=== PATIENT | male | born 1995 | race Caucasian/White ===

== ENCOUNTER 2016-10-04 12:47 | Emergency (ER) | payer SELFPAY ==
[2016-10-04 12:48] VITALS: BP 128/67; PULSE 100; RESP 20; TEMP 97.5; O2SAT 98
--- NOTE | 2016-10-04 14:07 | PD ---
Physical Exam Date Seen by Provider: Oct 04, 2016 Time Seen by Provider: 14:06 Narrative 21 YOWM JEFF TRAUMA R EAR YEST VSS. AWAITING BED PLACEMENT Data Data Last Documented VS Vital Signs Date Time Temp Pulse Resp B/P Pulse Ox O2 Delivery O2 Flow Rate FiO2 10/04/16 12:48 97.5 100 20 128/67 98 Room Air [facility] Medical Record Reviewed: Yes Supervised Visit with YURI: Yes [place] Moon Oct 04, 2016 14:07
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
[2016-10-04] MEDS ORDERED: TETANUS/DIPHTHERIA TOXOID ADULT 0.5 ML VIAL IM ONE (14:45)
[2016-10-04] MEDS ORDERED: LIDOCAINE HCL 1% 50 ML VIAL INFIL ONE (14:45)
[2016-10-04] MEDS ORDERED: IBUP800T23 PO (14:53)
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
[2016-10-04] MEDS ORDERED: IBUPROFEN 800 MG TAB PO ONE (16:30)
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
== END 2016-10-04 16:32 | disposition home or self-care (01) ==
LOC: NETRI 12:47
DX: S01.319A Laceration without foreign body of unspecified ear, initial encounter (principal); S00.439A Contusion of unspecified ear, initial encounter; R51 Headache; W03.XXXA Other fall on same level due to collision with another person, initial encounter; Y93.89 Activity, other specified; Y92.480 Sidewalk as the place of occurrence of the external cause; Z23 Encounter for immunization
CPT/HCPCS: 12011; 70450; 90471; 90714

== ENCOUNTER 2017-01-28 23:42 | Inpatient (IN) | payer OTHER ==
[~2017-01-28] VITALS: Ht 193 cm; Wt 80.6 kg
[2017-01-28 23:40] VITALS: O2SAT 99
[~2017-01-28 23:42] MED LIST: IBUP800T23 PO
[2017-01-28 23:59] VITALS: O2SAT 98
[2017-01-28] MEDS ORDERED: ceFAZolin 2 GM PREMIX 50 ML ONE (23:59)
[2017-01-28] MEDS ORDERED: DIPHTH/TETANUS/ACEL PERTUSSIS (BOOSTER) 0.5 ML VIAL/PFS IM ONE (23:59)
[2017-01-29] VITALS (10 sets, daily range): BP systolic 91–120; BP diastolic 52–64; PULSE 85–147; RESP 20–36; TEMP 98.7–102; O2SAT 98–100
[2017-01-29] MEDS ORDERED: MORPHINE SULFATE 8 MG/ML INJ ONE (00:13)
[2017-01-29 00:15] LABS: AUTOMATED NEUTROPHIL # 5.9 TH/MM3 (1.8-7.7); BASOPHIL # 0.1 TH/MM3 (0-0.2); BASOPHIL % 1.3 % (0.0-2.0); EOSINOPHIL % 0.3 % (0.0-4.0); HEMATOCRIT 41.5 % (39.0-51.0); HEMO FLAGS DIFF FINAL; LYMPH % 26.6 % (9.0-44.0); LYMPHOCYTE # 2.3 TH/MM3 (1.0-4.8); MEAN CORPUSCULAR HGB CONC 34.1 % (32.0-36.0); MONO % 4.1 % (0.0-8.0); NEUT % 67.7 % (16.0-70.0); PLATELET COUNT 213 TH/MM3 (150-450); RED BLOOD COUNT 4.89 MIL/MM3 (4.50-5.90); RED CELL DISTRIBUTION WIDTH 13.4 % (11.6-17.2); WHITE BLOOD COUNT 8.8 TH/MM3 (4.0-11.0)
[2017-01-29] MEDS ORDERED: ONDANSETRON HCL 4 MG/2 ML VIAL IV PRN (00:15)
[2017-01-29] MEDS ORDERED: NALOXONE HCL 0.4 MG/ML AMP IV PRN (00:15)
[2017-01-29] MEDS ORDERED: SODIUM CHLORIDE 0.9% FLUSH 10 ML FLUSH IV FLUSH PRN ×2 (00:15→22:30)
[2017-01-29] MEDS ORDERED: Post-op Orders (for Pharmacy) MISC XX ONE ×2 (00:15→22:30)
[2017-01-29 00:16] LABS: I-STAT POTASSIUM 3.3 MMOL/L (3.5-4.9)
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
[2017-01-29] MEDS ORDERED: IOHEXOL 350 MG/ML 10 ML VIAL (for RAD DIAG) IV ONE (00:18)
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
[2017-01-29] MEDS ORDERED: ONDANSETRON HCL 4 MG/2 ML VIAL ONE (00:24)
[2017-01-29] MEDS ORDERED: SODIUM CHLORIDE 0.9% FLUSH 10 ML FLUSH IVF PRN (00:30)
[2017-01-29 00:31] LABS: APTT (PATIENT) 29.6 SEC (24.3-30.1); PROTHROMBIN TIME - PATIENT 11.2 SEC (9.8-11.6)
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
[2017-01-29] MEDS: MORPHINE SULFATE 4 MG/ML INJ IV PRN ×7 (00:51→16:29)
[2017-01-29] MEDS: PANTOPRAZOLE SODIUM 40 MG VIAL IV SCH (00:51)
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
[2017-01-29] MEDS: LACTATED RINGER'S 1000 ML INJ 1,000 ML IV SCH ×2 (02:40→08:04)
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
[2017-01-29] MEDS ORDERED: RESP: ALBUTEROL 2.5 MG/IPRATROPIUM 0.5 MG NEB (PRN) NEB (07:45)
[2017-01-29] MEDS ORDERED: BISACODYL 10 MG SUPP RECTAL PRN ×2 (07:45→22:30)
[2017-01-29] MEDS ORDERED: DOCUSATE SODIUM 100 MG CAP PO SCH (09:00)
[2017-01-29] MEDS ORDERED: SODIUM CHLORIDE 0.9% FLUSH 10 ML FLUSH IV FLUSH SCH (09:00)
[2017-01-29] MEDS: SODIUM CHLORIDE 0.9% FLUSH 10 ML FLUSH IV FLUSH SCH ×2 (09:00→21:00)
[2017-01-29] MEDS: DOCUSATE SODIUM 50 MG/SENNA 8.6 MG TAB PO SCH ×2 (09:00→21:00)
[2017-01-29] MEDS ORDERED: ACETAMINOPHEN 325 MG TAB PO PRN (10:00)
[2017-01-29] MEDS ORDERED: oxyCODONE/ACETAMINOPHEN 5 MG/325 MG TAB PO PRN ×2 (11:00→22:30)
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
[2017-01-29] MEDS ORDERED: PHENYLEPH/NS 1000 MCG/10 ML SYR IV ONE (12:00)
[2017-01-29] MEDS ORDERED: PROPOFOL 200 MG/20 ML AMP IV ONE (12:00)
[2017-01-29] MEDS ORDERED: LACTATED RINGER'S 1000 ML INJ 2,000 ML IV ONE (12:00)
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
[2017-01-29] MEDS ORDERED: LACTATED RINGER'S 1000 ML IV PRN (20:00)
[2017-01-29] MEDS ORDERED: CHLORHEXIDINE GLUCONATE 2 % 1 PACK (2 CLOTHS) TOPICAL PRN (20:00)
[2017-01-29] MEDS ORDERED: POVIDONE IODINE 5% (ANTISEPSIS KIT) 4 APPLICATIONS EACH NARE PRN (20:00)
[2017-01-29] MEDS ORDERED: ACETAMINOPHEN 1000 MG/100 ML VIAL IV ONE (20:33)
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
[2017-01-29] MEDS ORDERED: DO NOT ADM ANY ANTICOAGULANT DRUGS PRN (21:43)
[2017-01-29] MEDS ORDERED: fentaNYL CITRATE 250 MCG/5 ML AMP ONE (21:48)
[2017-01-29] MEDS ORDERED: MIDAZOLAM HCL 2 MG/2 ML VIAL ONE (21:48)
[2017-01-29] MEDS ORDERED: MORPHINE SULFATE 4 MG/ML INJ ONE (21:49)
--- NOTE | 2017-01-29 22:27 | RADRPT ---
EXAM DATE/TIME: 01/29/2017 21:12 [place] COMPARISON: CT KNEE LEFT W/O CONTRAST, January 29, 2017, 14:36. TIBIA/FIBULA LEFT (1 VW), January 28, 2017, 23:42. INDICATIONS : Evaluate left tibia fracture. MEDICAL HISTORY : None. SURGICAL HISTORY : None. ENCOUNTER: Subsequent ACUITY: 1 day PAIN SCORE: Non-responsive. LOCATION: Left tibia. FINDINGS: 6 images of the tibia and fibula were recorded digitally in the operating room using C-arm to evaluat e comminuted fracture of proximal tibia and proximal fibular fracture. CONCLUSION: Intraoperative images. Rahat Ho MD on January 29, 2017 at 22:22 Board Certified Radiologist. This report was verified electronically.
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
[2017-01-29] MEDS ORDERED: PROMETHAZINE HCL 25 MG TAB PO PRN (22:30)
[2017-01-29] MEDS ORDERED: ZOLPIDEM TARTRATE 5 MG TAB PO PRN (22:30)
[2017-01-29] MEDS ORDERED: MAGNESIUM HYDROXIDE SUSP 30 ML CUP PO PRN (22:30)
[2017-01-29] MEDS ORDERED: SENNOSIDES 8.6 MG TAB PO PRN (22:30)
[2017-01-29] MEDS ORDERED: LACTULOSE SYRUP 20 GM/30 ML CUP PO PRN (22:30)
[2017-01-29] MEDS: KETOROLAC TROMETHAMINE 30 MG/ML (IVP) VIAL IVP SCH (22:53)
[2017-01-29] MEDS: oxyCODONE/ACETAMINOPHEN 5 MG/325 MG TAB PO PRN (22:54)
[2017-01-29] MEDS: VANCOMYCIN INJ 1,000 MG in SODIUM CHLOR 0.9% 250 ML INJ 250 ML IV SCH (22:54)
[2017-01-30] VITALS (8 sets, daily range): BP systolic 105–129; BP diastolic 50–59; PULSE 67–97; RESP 18–22; TEMP 96.1–98.2; O2SAT 97–99
[2017-01-30] MEDS: PANTOPRAZOLE SODIUM 40 MG VIAL IV SCH (01:20)
[2017-01-30] MEDS: MORPHINE SULFATE 8 MG/ML INJ IV PUSH PRN ×4 (01:21→12:59)
[2017-01-30] MEDS: KETOROLAC TROMETHAMINE 30 MG/ML (IVP) VIAL IVP SCH ×2 (05:51→10:25)
[2017-01-30 08:52] LABS: AUTOMATED NEUTROPHIL # 4.5 TH/MM3 (1.8-7.7); BASOPHIL % 0.3 % (0.0-2.0); EOSINOPHIL % 0.3 % (0.0-4.0); HEMATOCRIT 26.9 % (39.0-51.0); HEMO FLAGS DIFF FINAL; LYMPH % 20.1 % (9.0-44.0); LYMPHOCYTE # 1.3 TH/MM3 (1.0-4.8); MEAN CELL VOLUME 83.7 FL (80.0-100.0); MEAN CORPUSCULAR HEMOGLOBIN 29.3 PG (27.0-34.0); MONO % 9.9 % (0.0-8.0); NEUT % 69.4 % (16.0-70.0); PLATELET COUNT 129 TH/MM3 (150-450); RED BLOOD COUNT 3.21 MIL/MM3 (4.50-5.90); RED CELL DISTRIBUTION WIDTH 13.1 % (11.6-17.2); WHITE BLOOD COUNT 6.5 TH/MM3 (4.0-11.0)
[2017-01-30] MEDS: SODIUM CHLORIDE 0.9% FLUSH 10 ML FLUSH IV FLUSH SCH ×2 (09:00→20:25)
[2017-01-30] MEDS ORDERED: DOCUSATE SODIUM 50 MG/SENNA 8.6 MG TAB PO SCH (09:00)
[2017-01-30] MEDS ORDERED: LACTULOSE SYRUP 20 GM/30 ML CUP PO SCH (09:00)
[2017-01-30 09:15] LABS: POTASSIUM 4.2 MEQ/L (3.5-5.1)
[2017-01-30] MEDS: oxyCODONE/ACETAMINOPHEN 5 MG/325 MG TAB PO PRN (09:19)
[2017-01-30] MEDS: VANCOMYCIN INJ 1,000 MG in SODIUM CHLOR 0.9% 250 ML INJ 250 ML IV SCH (10:26)
[2017-01-30] MEDS: METHOCARBAMOL 500 MG TAB PO SCH ×2 (12:21→20:24)
[2017-01-30] MEDS: BACITRACIN TOP OINT 15 GM TUBE TOPICAL SCH ×2 (12:57→20:25)
[2017-01-30] MEDS: LIDOCAINE HCL 5% PATCH T-DERMAL SCH (12:59)
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
[2017-01-30] MEDS ORDERED: HYDROmorphone HCL PF 1 MG/ML VIAL IV PUSH PRN ×2 (13:15)
[2017-01-30] MEDS ORDERED: WALKER WHEELS/F1 MIS (15:54)
[2017-01-30] MEDS: HYDROmorphone HCL PF 1 MG/ML VIAL IV PUSH PRN ×2 (17:21→20:25)
[2017-01-30 18:50] LABS: HEMATOCRIT 25.1 % (39.0-51.0); REVIEW FLAG FINAL
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
[2017-01-30] MEDS: DOCUSATE SODIUM 50 MG/SENNA 8.6 MG TAB PO SCH (20:24)
[2017-01-31] VITALS: BP 110/53; PULSE 88; RESP 20; TEMP 98; O2SAT 98
[2017-01-31] MEDS: HYDROmorphone HCL PF 1 MG/ML VIAL IV PUSH PRN ×2 (01:00→04:03)
[2017-01-31] MEDS: METHOCARBAMOL 500 MG TAB PO SCH ×3 (04:03→20:12)
[2017-01-31] MEDS: oxyCODONE/ACETAMINOPHEN 5 MG/325 MG TAB PO PRN ×4 (06:31→18:52)
[2017-01-31] MEDS ORDERED: oxyCODONE/ACETAMINOPHEN 5 MG/325 MG TAB PO PRN (07:00)
[2017-01-31] MEDS: MORPHINE SULFATE 8 MG/ML INJ IV PUSH PRN ×4 (07:45→20:15)
[2017-01-31 08:00] VITALS: BP 91/48; PULSE 82; RESP 16; TEMP 98.9; O2SAT 97
[2017-01-31] MEDS: DOCUSATE SODIUM 50 MG/SENNA 8.6 MG TAB PO SCH ×2 (08:53→20:12)
[2017-01-31] MEDS: LIDOCAINE HCL 5% PATCH T-DERMAL SCH (08:53)
[2017-01-31] MEDS: BACITRACIN TOP OINT 15 GM TUBE TOPICAL SCH ×2 (08:54→20:13)
[2017-01-31 10:40] LABS: REVIEW FLAG FINAL
[2017-01-31 12:00] VITALS: BP 102/51; PULSE 62; RESP 17; TEMP 96.6; O2SAT 98
[2017-01-31] MEDS: GABAPENTIN 300 MG CAP PO SCH ×2 (12:06→18:52)
[2017-01-31] MEDS: SODIUM CHLORIDE 0.9% FLUSH 10 ML FLUSH IV FLUSH SCH ×2 (12:07→20:09)
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
[2017-01-31] MEDS ORDERED: LACTULOSE SYRUP 20 GM/30 ML CUP PO ONE (12:30)
[2017-01-31 16:00] VITALS: BP 105/53; PULSE 77; RESP 19; TEMP 97.8; O2SAT 97
[2017-01-31 20:00] VITALS: BP 100/52; PULSE 67; RESP 18; TEMP 96.6; O2SAT 100
[2017-01-31] MEDS: ENOXAPARIN SODIUM 30 MG/0.3 ML SYRINGE SQ SCH (20:11)
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
[2017-02-01] VITALS: BP 106/54; PULSE 95; RESP 18; TEMP 97.2; O2SAT 98
[2017-02-01] MEDS: oxyCODONE/ACETAMINOPHEN 5 MG/325 MG TAB PO PRN ×6 (00:11→22:23)
[2017-02-01] MEDS: MORPHINE SULFATE 8 MG/ML INJ IV PUSH PRN ×5 (01:19→23:38)
[2017-02-01 04:00] VITALS: BP 107/54; PULSE 83; RESP 18; TEMP 97.3; O2SAT 97
[2017-02-01] MEDS: METHOCARBAMOL 500 MG TAB PO SCH ×3 (05:12→22:23)
[2017-02-01 05:58] LABS: BASOPHIL % 0.8 % (0.0-2.0); EOSINOPHIL # 0.3 TH/MM3 (0-0.4); EOSINOPHIL % 4.7 % (0.0-4.0); HEMO FLAGS DIFF FINAL; LYMPH % 30.6 % (9.0-44.0); LYMPHOCYTE # 1.7 TH/MM3 (1.0-4.8); MEAN CELL VOLUME 85.2 FL (80.0-100.0); MEAN CORPUSCULAR HEMOGLOBIN 28.4 PG (27.0-34.0); MEAN CORPUSCULAR HGB CONC 33.4 % (32.0-36.0); MONO % 9.8 % (0.0-8.0); NEUT % 54.1 % (16.0-70.0); PLATELET COUNT 209 TH/MM3 (150-450); RED CELL DISTRIBUTION WIDTH 13.4 % (11.6-17.2); WHITE BLOOD COUNT 5.5 TH/MM3 (4.0-11.0)
[2017-02-01 05:59] LABS: POTASSIUM 3.8 MEQ/L (3.5-5.1)
--- NOTE | 2017-02-01 06:52 | RADRPT ---
EXAM DATE/TIME: 02/01/2017 06:08 [place] COMPARISON: CHEST SINGLE AP, January 28, 2017, 23:42. INDICATIONS : Pain left chest and left upper abdomen, coughing MEDICAL HISTORY : splenic laceration, tib/fib fracture, contusion SURGICAL HISTORY : None. ENCOUNTER: Subsequent ACUITY: 3 days PAIN SCORE: 8/10 LOCATION: Left chest FINDINGS: A single view of the chest demonstrates the lungs to be symmetrically aerated without evidence of mas s, infiltrate or effusion. The cardiomediastinal contours are unremarkable. Osseous structures are intact. CONCLUSION: Normal examination. Raven Haskins MD on February 01, 2017 at 6:50 Board Certified Radiologist. This report was verified electronically.
[2017-02-01] MEDS: SODIUM CHLORIDE 0.9% FLUSH 10 ML FLUSH IV FLUSH SCH ×2 (07:42→19:48)
[2017-02-01] MEDS: GABAPENTIN 300 MG CAP PO SCH ×3 (07:42→17:22)
[2017-02-01] MEDS: DOCUSATE SODIUM 50 MG/SENNA 8.6 MG TAB PO SCH ×2 (07:43→19:48)
[2017-02-01] MEDS: LIDOCAINE HCL 5% PATCH T-DERMAL SCH (07:43)
[2017-02-01] MEDS: BACITRACIN TOP OINT 15 GM TUBE TOPICAL SCH ×2 (07:44→19:52)
[2017-02-01] MEDS: ENOXAPARIN SODIUM 30 MG/0.3 ML SYRINGE SQ SCH ×2 (07:45→22:23)
[2017-02-01 08:00] VITALS: BP 110/55; PULSE 90; RESP 18; TEMP 97; O2SAT 98
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
[2017-02-01 12:00] VITALS: BP 122/57; PULSE 87; RESP 15; TEMP 96.6; O2SAT 99
[2017-02-01 16:00] VITALS: BP 113/53; PULSE 83; RESP 17; TEMP 97.2; O2SAT 98
[2017-02-01 20:00] VITALS: BP 136/64; PULSE 99; RESP 20; TEMP 97.4; O2SAT 98
[2017-02-02] VITALS: BP 111/56; PULSE 89; RESP 18; TEMP 98.6; O2SAT 98
[2017-02-02] MEDS: oxyCODONE/ACETAMINOPHEN 5 MG/325 MG TAB PO PRN ×5 (03:14→23:52)
[2017-02-02] MEDS: MORPHINE SULFATE 8 MG/ML INJ IV PUSH PRN ×5 (05:20→22:31)
[2017-02-02] MEDS: METHOCARBAMOL 500 MG TAB PO SCH ×4 (05:21→22:21)
[2017-02-02 08:00] VITALS: BP 103/49; PULSE 73; RESP 16; TEMP 97.9; O2SAT 97
[2017-02-02] MEDS ORDERED: GENTAMICIN SULFATE 80 MG/2 ML VIAL ONE (08:39)
[2017-02-02] MEDS: SODIUM CHLORIDE 0.9% FLUSH 10 ML FLUSH IV FLUSH SCH ×2 (08:54→19:50)
[2017-02-02] MEDS: GABAPENTIN 300 MG CAP PO SCH ×4 (08:59→18:09)
[2017-02-02] MEDS: BACITRACIN TOP OINT 15 GM TUBE TOPICAL SCH ×2 (08:59→19:50)
[2017-02-02] MEDS: DOCUSATE SODIUM 50 MG/SENNA 8.6 MG TAB PO SCH ×2 (08:59→19:49)
[2017-02-02] MEDS: LIDOCAINE HCL 5% PATCH T-DERMAL SCH (08:59)
[2017-02-02] MEDS: ENOXAPARIN SODIUM 30 MG/0.3 ML SYRINGE SQ SCH (09:00)
[2017-02-02] MEDS ORDERED: FAMOTIDINE 20 MG/2 ML VIAL ONE ×2 (11:43→11:51)
[2017-02-02] MEDS ORDERED: HYDROmorphone HCL PF 2 MG/ML VIAL ONE (11:43)
[2017-02-02] MEDS ORDERED: VANCOMYCIN HCL 1000 MG VIAL ONE (11:50)
[2017-02-02] MEDS ORDERED: ceFAZolin INJ 1,000 MG VIAL ONE (11:50)
[2017-02-02] MEDS ORDERED: MIDAZOLAM HCL 2 MG/2 ML VIAL ONE ×2 (11:51→15:11)
[2017-02-02] MEDS ORDERED: PROPOFOL 200 MG/20 ML AMP IV ONE (12:00)
[2017-02-02] MEDS ORDERED: ONDANSETRON HCL 4 MG/2 ML VIAL IV PUSH ONE (12:00)
[2017-02-02] MEDS ORDERED: KETOROLAC TROMETHAMINE 60 MG/2 ML (IM) VIAL IM ONE (12:00)
--- NOTE | 2017-02-02 13:23 | PD.OP ---
cc: Dandy Rolle Jr., MD Operative Report Date of Surgery: Feb 02, 2017 Preoperative Diagnosis: Left leg compartment syndrome with proximal tibia fracture Postoperative Diagnosis: Same Procedure: Left leg wound closure Anesthesia: Gen. Surgeon: Dandy Rolle Resident Manager(s): Staff Resident Surgeon: None Operation and Findings: Timeout was performed. Patient left leg was prepped and draped in usual sterile manner. Wound VAC was removed. The medial and lateral fasciotomy wounds were thoroughly irrigated. All 4 compartments were soft without any evidence of soft tissue or muscular necrosis. The wounds were closed with 2-0 Vicryl, and 2-0 nylon at the skin. Compartments remain soft after wound closure and the wound would not under any significant tension. The Long leg splint was replaced. Patient was extubated and transferred to recovery room in stable condition. There were no complications. Dandy Rolle Jr., MD Feb 02, 2017 13:23
[2017-02-02] MEDS ORDERED: oxyCODONE/ACETAMINOPHEN 5 MG/325 MG TAB PO PRN ×2 (13:30)
[2017-02-02] MEDS ORDERED: SENNOSIDES 8.6 MG TAB PO PRN (13:30)
[2017-02-02] MEDS ORDERED: BISACODYL 10 MG SUPP RECTAL PRN (13:30)
[2017-02-02] MEDS ORDERED: PROMETHAZINE HCL 25 MG TAB PO PRN (13:30)
[2017-02-02] MEDS ORDERED: Post-op Orders (for Pharmacy) MISC XX ONE (13:30)
[2017-02-02] MEDS ORDERED: SODIUM CHLORIDE 0.9% FLUSH 10 ML FLUSH IV FLUSH PRN (13:30)
[2017-02-02] MEDS ORDERED: LACTULOSE SYRUP 20 GM/30 ML CUP PO PRN (13:30)
[2017-02-02] MEDS ORDERED: MAGNESIUM HYDROXIDE SUSP 30 ML CUP PO PRN (13:30)
[2017-02-02] MEDS ORDERED: DO NOT ADM ANY ANTICOAGULANT DRUGS PRN (13:48)
[2017-02-02] MEDS ORDERED: *morphine SULFATE 8 MG/ML PERIprocedure ONLY ONE (14:09)
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
[2017-02-02] MEDS ORDERED: fentaNYL CITRATE 250 MCG/5 ML AMP ONE (15:11)
[2017-02-02 16:00] VITALS: BP 107/55; PULSE 92; RESP 16; TEMP 96.3; O2SAT 97
[2017-02-02] MEDS: KETOROLAC TROMETHAMINE 30 MG/ML (IVP) VIAL IVP SCH (19:49)
[2017-02-02 20:00] VITALS: BP 116/57; PULSE 86; RESP 18; TEMP 95.4; O2SAT 98
[2017-02-02] MEDS ORDERED: ZOLPIDEM TARTRATE 5 MG TAB PO PRN (21:00)
[2017-02-02] MEDS ORDERED: DOCUSATE SODIUM 50 MG/SENNA 8.6 MG TAB PO SCH (21:00)
[2017-02-02] MEDS: VANCOMYCIN INJ 1,000 MG in SODIUM CHLOR 0.9% 250 ML INJ 250 ML IV SCH (22:21)
[2017-02-03] VITALS: BP 115/54; PULSE 66; RESP 18; TEMP 96.5; O2SAT 97
[2017-02-03] MEDS: ENOXAPARIN SODIUM 30 MG/0.3 ML SYRINGE SQ SCH ×2 (02:30→14:00)
[2017-02-03] MEDS: KETOROLAC TROMETHAMINE 30 MG/ML (IVP) VIAL IVP SCH ×4 (02:30→22:34)
[2017-02-03] MEDS: MORPHINE SULFATE 8 MG/ML INJ IV PUSH PRN ×4 (02:30→22:35)
[2017-02-03] MEDS: oxyCODONE/ACETAMINOPHEN 5 MG/325 MG TAB PO PRN ×3 (03:46→20:14)
[2017-02-03] MEDS: METHOCARBAMOL 500 MG TAB PO SCH ×3 (05:39→20:13)
[2017-02-03] MEDS: GABAPENTIN 300 MG CAP PO SCH ×3 (08:01→18:00)
[2017-02-03] MEDS: LIDOCAINE HCL 5% PATCH T-DERMAL SCH (08:01)
[2017-02-03] MEDS: BACITRACIN TOP OINT 15 GM TUBE TOPICAL SCH ×2 (08:01→20:19)
[2017-02-03] MEDS: DOCUSATE SODIUM 50 MG/SENNA 8.6 MG TAB PO SCH ×2 (08:03→20:19)
[2017-02-03] MEDS: SODIUM CHLORIDE 0.9% FLUSH 10 ML FLUSH IV FLUSH SCH ×2 (08:03→20:18)
[2017-02-03 08:15] VITALS: BP 106/55; PULSE 73; RESP 18; TEMP 97; O2SAT 98
[2017-02-03] MEDS ORDERED: GENTAMICIN SULFATE 80 MG/2 ML VIAL ONE (08:30)
[2017-02-03] MEDS: VANCOMYCIN INJ 1,000 MG in SODIUM CHLOR 0.9% 250 ML INJ 250 ML IV SCH ×2 (11:38→22:33)
[2017-02-03] MEDS ORDERED: WHEEMIS3 (11:42)
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
[2017-02-03] MEDS ORDERED: PROPOFOL 200 MG/20 ML AMP IV ONE (11:56)
[2017-02-03] MEDS ORDERED: KETOROLAC TROMETHAMINE 60 MG/2 ML (IM) VIAL IM ONE (11:57)
[2017-02-03] MEDS ORDERED: ONDANSETRON HCL 4 MG/2 ML VIAL IV PUSH ONE (11:57)
[2017-02-03] MEDS ORDERED: LACTATED RINGER'S 1000 ML INJ 1,000 ML IV ONE (11:57)
[2017-02-03] MEDS ORDERED: MIDAZOLAM HCL 2 MG/2 ML VIAL ONE (12:29)
[2017-02-03] MEDS ORDERED: ACETAMINOPHEN 1000 MG/100 ML VIAL IV ONE (12:29)
[2017-02-03] MEDS ORDERED: ONDANSETRON HCL 4 MG/2 ML VIAL ONE (12:30)
[2017-02-03] MEDS ORDERED: FAMOTIDINE 20 MG/2 ML VIAL ONE (12:30)
[2017-02-03] MEDS ORDERED: fentaNYL CITRATE 250 MCG/5 ML AMP ONE (12:30)
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
[2017-02-03] MEDS ORDERED: PERC5TAB12 PO (15:57)
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
[2017-02-03] MEDS ORDERED: MORPHINE SULFATE 8 MG/ML INJ IV PUSH PRN (16:15)
[2017-02-03] MEDS ORDERED: ZOLPIDEM TARTRATE 5 MG TAB PO PRN (16:15)
[2017-02-03] MEDS ORDERED: SODIUM CHLORIDE 0.9% FLUSH 10 ML FLUSH IV FLUSH PRN (16:15)
[2017-02-03] MEDS ORDERED: LACTULOSE SYRUP 20 GM/30 ML CUP PO PRN (16:15)
[2017-02-03] MEDS ORDERED: oxyCODONE/ACETAMINOPHEN 5 MG/325 MG TAB PO PRN (16:15)
[2017-02-03] MEDS ORDERED: BISACODYL 10 MG SUPP RECTAL PRN (16:15)
[2017-02-03] MEDS ORDERED: MAGNESIUM HYDROXIDE SUSP 30 ML CUP PO PRN (16:15)
[2017-02-03] MEDS ORDERED: SENNOSIDES 8.6 MG TAB PO PRN (16:15)
[2017-02-03] MEDS ORDERED: Post-op Orders (for Pharmacy) MISC XX ONE (16:15)
[2017-02-03] MEDS ORDERED: PROMETHAZINE HCL 25 MG TAB PO PRN (16:15)
[2017-02-03] MEDS ORDERED: DO NOT ADM ANY ANTICOAGULANT DRUGS PRN (16:45)
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
[2017-02-03] MEDS ORDERED: *MEPERIDINE 25 MG INJ VIAL PERIprocedural Use ONLY ONE (17:13)
[2017-02-03] MEDS ORDERED: *morphine SULFATE 8 MG/ML PERIprocedure ONLY ONE ×3 (17:18→17:31)
[2017-02-03] MEDS ORDERED: *HYDROmorphone PF 1 MG VIAL PERIprocedural Use ONLY ONE (17:37)
[2017-02-03] MEDS ORDERED: ceFAZolin INJ 1,000 MG VIAL ONE (18:00)
[2017-02-03] MEDS: LACTATED RINGER'S 1000 ML INJ 1,000 ML IV SCH (18:00)
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
[2017-02-03 20:00] VITALS: BP 118/58; PULSE 78; RESP 16; TEMP 95.5; O2SAT 96
[2017-02-04] VITALS: BP 113/55; PULSE 102; RESP 16; TEMP 98.5; O2SAT 97
[2017-02-04] MEDS: MORPHINE SULFATE 8 MG/ML INJ IV PUSH PRN ×3 (03:04→08:57)
[2017-02-04 04:00] VITALS: BP 136/65; PULSE 96; RESP 16; TEMP 99.2; O2SAT 96
[2017-02-04] MEDS: KETOROLAC TROMETHAMINE 30 MG/ML (IVP) VIAL IVP SCH ×4 (04:07→21:38)
[2017-02-04] MEDS: oxyCODONE/ACETAMINOPHEN 5 MG/325 MG TAB PO PRN ×2 (04:07→08:13)
[2017-02-04] MEDS: LACTATED RINGER'S 1000 ML INJ 1,000 ML IV SCH ×2 (05:30→21:34)
[2017-02-04] MEDS: METHOCARBAMOL 500 MG TAB PO SCH ×3 (06:04→21:38)
[2017-02-04] MEDS: ENOXAPARIN SODIUM 30 MG/0.3 ML SYRINGE SQ SCH ×2 (06:06→17:06)
[2017-02-04 08:00] VITALS: BP 119/64; PULSE 99; RESP 18; TEMP 99.4; O2SAT 97
[2017-02-04] MEDS: GABAPENTIN 300 MG CAP PO SCH ×2 (08:12→12:01)
[2017-02-04] MEDS: DOCUSATE SODIUM 50 MG/SENNA 8.6 MG TAB PO SCH ×2 (08:12→21:38)
[2017-02-04] MEDS: LIDOCAINE HCL 5% PATCH T-DERMAL SCH (08:13)
[2017-02-04] MEDS: BACITRACIN TOP OINT 15 GM TUBE TOPICAL SCH ×2 (08:59→21:00)
[2017-02-04] MEDS: SODIUM CHLORIDE 0.9% FLUSH 10 ML FLUSH IV FLUSH SCH ×2 (08:59→21:00)
[2017-02-04] MEDS ORDERED: NALOXONE HCL 0.4 MG/ML AMP IV PRN (11:15)
[2017-02-04] MEDS ORDERED: HYDROmorphone HCL PCA 6 MG/30 ML IV SCH (11:15)
[2017-02-04 12:00] VITALS: BP 118/56; PULSE 105; RESP 19; TEMP 100; O2SAT 96
[2017-02-04] MEDS: VANCOMYCIN INJ 1,000 MG in SODIUM CHLOR 0.9% 250 ML INJ 250 ML IV SCH (12:01)
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
[2017-02-04] MEDS: GABAPENTIN 400 MG CAP PO SCH ×2 (13:00→17:06)
[2017-02-04] MEDS: PCA - TOTAL MG DILAUDID DELIVERED PER SHIFT OTHER SCH ×2 (14:00→21:38)
[2017-02-04 16:00] VITALS: BP 120/62; PULSE 95; RESP 19; TEMP 99.5; O2SAT 99
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
[2017-02-04 20:00] VITALS: BP_SYST 57; PULSE 103; RESP 18; TEMP 99; O2SAT 98
[2017-02-04] MEDS: HYDROmorphone HCL PCA 6 MG/30 ML IV SCH (21:36)
[2017-02-05] VITALS: BP 114/56; PULSE 116; RESP 18; TEMP 101.7; O2SAT 97
[2017-02-05 05:08] LABS: AUTOMATED NEUTROPHIL # 6.4 TH/MM3 (1.8-7.7); BASOPHIL # 0.1 TH/MM3 (0-0.2); BASOPHIL % 0.6 % (0.0-2.0); EOSINOPHIL # 0.1 TH/MM3 (0-0.4); EOSINOPHIL % 1.2 % (0.0-4.0); HEMATOCRIT 28.6 % (39.0-51.0); HEMO FLAGS DIFF FINAL; LYMPH % 20.2 % (9.0-44.0); LYMPHOCYTE # 1.9 TH/MM3 (1.0-4.8); MEAN CELL VOLUME 84.9 FL (80.0-100.0); MEAN CORPUSCULAR HEMOGLOBIN 28.1 PG (27.0-34.0); MEAN CORPUSCULAR HGB CONC 33.1 % (32.0-36.0); MONO % 9.2 % (0.0-8.0); NEUT % 68.8 % (16.0-70.0); PLATELET COUNT 442 TH/MM3 (150-450); RED BLOOD COUNT 3.37 MIL/MM3 (4.50-5.90); RED CELL DISTRIBUTION WIDTH 13.8 % (11.6-17.2); WHITE BLOOD COUNT 9.3 TH/MM3 (4.0-11.0)
[2017-02-05 05:40] LABS: BICARBONATE 28.5 MEQ/L (21.0-32.0); POTASSIUM 4.2 MEQ/L (3.5-5.1)
[2017-02-05] MEDS: METHOCARBAMOL 500 MG TAB PO SCH ×3 (05:42→22:35)
[2017-02-05] MEDS: ENOXAPARIN SODIUM 30 MG/0.3 ML SYRINGE SQ SCH ×2 (05:43→18:44)
[2017-02-05] MEDS: KETOROLAC TROMETHAMINE 30 MG/ML (IVP) VIAL IVP SCH ×2 (05:43→10:21)
[2017-02-05] MEDS: PCA - TOTAL MG DILAUDID DELIVERED PER SHIFT OTHER SCH ×3 (05:52→22:00)
[2017-02-05 08:00] VITALS: BP 122/58; PULSE 97; RESP 18; TEMP 99.1; O2SAT 96
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
[2017-02-05] MEDS: LIDOCAINE HCL 5% PATCH T-DERMAL SCH (10:20)
[2017-02-05] MEDS: SODIUM CHLORIDE 0.9% FLUSH 10 ML FLUSH IV FLUSH SCH ×2 (10:21→21:00)
[2017-02-05] MEDS: DOCUSATE SODIUM 50 MG/SENNA 8.6 MG TAB PO SCH ×2 (10:21→22:36)
[2017-02-05] MEDS: GABAPENTIN 400 MG CAP PO SCH ×3 (10:21→18:44)
[2017-02-05] MEDS: BACITRACIN TOP OINT 15 GM TUBE TOPICAL SCH ×2 (10:25→21:00)
[2017-02-05] MEDS: HYDROmorphone HCL PCA 6 MG/30 ML IV SCH ×2 (10:28→19:16)
--- NOTE | 2017-02-05 11:36 | HHI.PR ---
Subjective Subjective Notes Incisional pain better controlled today Objective Vitals/I&O Vital Signs Date Time Temp Pulse Resp B/P Pulse Ox O2 Delivery O2 Flow Rate FiO2 02/05/17 10:28 16 02/05/17 08:00 99.1 97 122/58 96 02/03/17 18:45 Room Air 02/02/17 16:33 2 Labs Laboratory Tests Test 02/05/17 04:31 White Blood Count 9.3 Red Blood Count 3.37 Hemoglobin 9.5 Hematocrit 28.6 Mean Corpuscular Volume 84.9 Mean Corpuscular Hemoglobin 28.1 Mean Corpuscular Hemoglobin 33.1 Concent Red Cell Distribution Width 13.8 Platelet Count 442 Mean Platelet Volume 6.1 Neutrophils (%) (Auto) 68.8 Lymphocytes (%) (Auto) 20.2 Monocytes (%) (Auto) 9.2 Eosinophils (%) (Auto) 1.2 Basophils (%) (Auto) 0.6 Neutrophils # (Auto) 6.4 Lymphocytes # (Auto) 1.9 Monocytes # (Auto) 0.9 Eosinophils # (Auto) 0.1 Basophils # (Auto) 0.1 CBC Comment DIFF FINAL Differential Comment Sodium Level 135 Potassium Level 4.2 Chloride Level 97 Carbon Dioxide Level 28.5 Anion Gap 10 Blood Urea Nitrogen 7 Creatinine 0.58 Estimat Glomerular Filtration 177 Rate Random Glucose 109 Calcium Level 8.6 Radiology Last Impressions Tibia/Fibula X-Ray 01/29/17 0000 Signed Impressions: Service Date/Time: Sunday, January 29, 2017 21:12 - CONCLUSION: Intraoperative images. Rahat Ho MD Lower Extremity CT 01/29/17 0000 Signed Impressions: Service Date/Time: Sunday, January 29, 2017 14:36 - CONCLUSION: 1. Acute comminuted minimally displaced fracture involving the tibial plateau and proximal tibia. 2. Acute nondisplaced fracture involving the proximal fibula. 3. Large suprapatellar knee joint effusion with fat-fluid level. Imtiaz Moore MD Thoracic Spine CT 01/28/17 828 Signed Impressions: Service Date/Time: Sunday, January 29, 2017 00:17 - CONCLUSION: Normal examination of the thoracic spine. Elongated 11 cm wedge-shaped infiltrate left lower and upper lobe posteriorly consistent with pulmonary contusion. Phillip Rangel MD Pelvis X-Ray 01/28/172351 Signed Impressions: Service Date/Time: Saturday, January 28, 2017 23:42 - CONCLUSION: Unremarkable examination of the pelvis. Phillip Rangel MD Maxillofacial CT 01/28/172351 Signed Impressions: Service Date/Time: Sunday, January 29, 2017 00:10 - CONCLUSION: Normal examination. Phillip Rangel MD Lumbar Spine CT 01/28/172351 Signed Impressions: Service Date/Time: Sunday, January 29, 2017 00:17 - CONCLUSION: Normal examination. Phillip Rangel MD Head CT 01/28/172351 Signed Impressions: Service Date/Time: Sunday, January 29, 2017 00:10 - CONCLUSION: Normal examination. Phillip Rangel MD Chest X-Ray 01/28/172351 Signed Impressions: Service Date/Time: Saturday, January 28, 2017 23:42 - CONCLUSION: Normal examination. Phillip Rangel MD Chest CT 01/28/172351 Signed Impressions: Service Date/Time: Sunday, January 29, 2017 00:17 - CONCLUSION: Wedge-shaped consolidation likely contusion in the left lung. No bone fracture or pneumothorax is seen. Wedge-shaped contusion measures up to 6.6 x 3.0 cm across. Possible splenic laceration. Deferred to CT the abdomen Phillip Rangel MD Cervical Spine CT 01/28/172351 Signed Impressions: Service Date/Time: Sunday, January 29, 2017 00:10 - CONCLUSION: Normal examination. Phillip Rangel MD Abdomen/Pelvis CT 01/28/172351 Signed Impressions: Service Date/Time: Sunday, January 29, 2017 00:17 - CONCLUSION: Horizontal laceration to the upper quarter of the spleen without a significant amount of free fluid or hemorrhage. There is a faint blush on the axial image # 28 could be a small amount of intraparenchymal extravasation. Phillip Rangel MD Femur X-Ray 01/28/17 0000 Signed Impressions: Service Date/Time: Saturday, January 28, 2017 23:42 - CONCLUSION: Unremarkable 2 view examination of the left femur. Phillip Rangel MD Cardiovascular: Regular Lungs: Clear Abdomen: Non-distended A/P Assessment and Plan ortho dressing change today PT pain control dispo planning Cleo Silva MD Feb 05, 2017 11:36
[2017-02-05 12:00] VITALS: BP 121/69; PULSE 98; RESP 18; TEMP 99; O2SAT 96
[2017-02-05 16:00] VITALS: BP 120/56; PULSE 97; RESP 18; TEMP 99.8; O2SAT 98
[2017-02-05 20:00] VITALS: BP 127/64; PULSE 102; RESP 18; TEMP 98.9; O2SAT 97
[2017-02-06 00:21] VITALS: BP 128/69; PULSE 104; RESP 18; TEMP 99.5; O2SAT 97
[2017-02-06] MEDS: PCA - TOTAL MG DILAUDID DELIVERED PER SHIFT OTHER SCH ×3 (03:55→21:37)
[2017-02-06] MEDS: HYDROmorphone HCL PCA 6 MG/30 ML IV SCH ×2 (03:55→13:00)
[2017-02-06] MEDS: ENOXAPARIN SODIUM 30 MG/0.3 ML SYRINGE SQ SCH ×2 (05:10→17:25)
[2017-02-06] MEDS: METHOCARBAMOL 500 MG TAB PO SCH ×3 (05:10→21:36)
[2017-02-06 08:00] VITALS: BP 125/63; PULSE 128; RESP 18; TEMP 98.5; O2SAT 98
[2017-02-06] MEDS ORDERED: LACTULOSE SYRUP 20 GM/30 ML CUP PO ONE (08:45)
[2017-02-06] MEDS: SODIUM CHLORIDE 0.9% FLUSH 10 ML FLUSH IV FLUSH SCH ×2 (09:00→21:00)
[2017-02-06] MEDS: GABAPENTIN 400 MG CAP PO SCH ×3 (09:00→17:25)
[2017-02-06] MEDS: DOCUSATE SODIUM 50 MG/SENNA 8.6 MG TAB PO SCH ×2 (10:11→21:00)
[2017-02-06] MEDS: LIDOCAINE HCL 5% PATCH T-DERMAL SCH (10:13)
[2017-02-06] MEDS: BACITRACIN TOP OINT 15 GM TUBE TOPICAL SCH ×2 (10:13→21:00)
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
[2017-02-06 12:00] VITALS: BP 117/62; PULSE 113; RESP 18; TEMP 98.3; O2SAT 90
[2017-02-06 16:00] VITALS: BP 132/65; PULSE 117; RESP 18; TEMP 97; O2SAT 96
[2017-02-06 20:00] VITALS: BP 127/70; PULSE 110; RESP 18; TEMP 97.9; O2SAT 96
[2017-02-06 21:50] VITALS: O2SAT 96
[2017-02-07] VITALS: BP_SYST 122; BP_SYST 139; BP_DIAS 56; BP_DIAS 86; PULSE 119; PULSE 63; RESP 20; TEMP 97.9; TEMP 99; O2SAT 94; O2SAT 97
[2017-02-07] MEDS: HYDROmorphone HCL PCA 6 MG/30 ML IV SCH ×2 (00:05→10:00)
[2017-02-07 04:00] VITALS: BP_SYST 118; BP_SYST 121; BP_DIAS 59; BP_DIAS 77; PULSE 104; PULSE 88; RESP 14; RESP 20; TEMP 96.3; TEMP 98.1; O2SAT 95; O2SAT 98
[2017-02-07] MEDS: PCA - TOTAL MG DILAUDID DELIVERED PER SHIFT OTHER SCH (05:26)
[2017-02-07] MEDS: METHOCARBAMOL 500 MG TAB PO SCH ×3 (06:24→22:04)
[2017-02-07] MEDS: ENOXAPARIN SODIUM 30 MG/0.3 ML SYRINGE SQ SCH ×2 (06:24→16:45)
[2017-02-07 08:00] VITALS: BP 124/57; PULSE 101; RESP 17; TEMP 98.5; O2SAT 98
[2017-02-07] MEDS: SODIUM CHLORIDE 0.9% FLUSH 10 ML FLUSH IV FLUSH SCH ×2 (09:00→22:03)
[2017-02-07] MEDS: LIDOCAINE HCL 5% PATCH T-DERMAL SCH (09:52)
[2017-02-07] MEDS: GABAPENTIN 400 MG CAP PO SCH ×3 (09:52→16:45)
[2017-02-07] MEDS: DOCUSATE SODIUM 50 MG/SENNA 8.6 MG TAB PO SCH ×2 (09:52→21:00)
[2017-02-07] MEDS: BACITRACIN TOP OINT 15 GM TUBE TOPICAL SCH ×2 (09:53→21:00)
[2017-02-07 12:00] VITALS: BP 119/56; PULSE 103; RESP 14; TEMP 96.4; O2SAT 99
[2017-02-07] MEDS ORDERED: HYDROmorphone HCL PF 1 MG/ML VIAL IV PUSH PRN (12:00)
[2017-02-07] MEDS ORDERED: oxyCODONE/ACETAMINOPHEN 5 MG/325 MG TAB PO PRN (12:00)
[2017-02-07] MEDS: oxyCODONE/ACETAMINOPHEN 5 MG/325 MG TAB PO PRN ×3 (12:30→22:07)
[2017-02-07] MEDS: NICOTINE 14 MG/24 HR PATCH T-DERMAL SCH (12:30)
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
[2017-02-07 16:00] VITALS: BP 118/61; PULSE 95; RESP 20; TEMP 97.2; O2SAT 100
[2017-02-07 20:00] VITALS: BP 115/58; PULSE 89; RESP 18; TEMP 97.4; O2SAT 98
[2017-02-08] VITALS: BP 121/58; PULSE 100; RESP 18; TEMP 97.2; O2SAT 99
[2017-02-08] MEDS: oxyCODONE/ACETAMINOPHEN 5 MG/325 MG TAB PO PRN ×4 (05:48→18:48)
[2017-02-08] MEDS: ENOXAPARIN SODIUM 30 MG/0.3 ML SYRINGE SQ SCH ×2 (05:49→18:22)
[2017-02-08] MEDS: METHOCARBAMOL 500 MG TAB PO SCH ×2 (05:49→14:12)
[2017-02-08 08:00] VITALS: BP 120/58; PULSE 94; RESP 18; TEMP 96.9; O2SAT 98
[2017-02-08] MEDS: GABAPENTIN 400 MG CAP PO SCH ×3 (08:32→18:22)
[2017-02-08] MEDS: NICOTINE 14 MG/24 HR PATCH T-DERMAL SCH (08:32)
[2017-02-08] MEDS: DOCUSATE SODIUM 50 MG/SENNA 8.6 MG TAB PO SCH (08:32)
[2017-02-08] MEDS: SODIUM CHLORIDE 0.9% FLUSH 10 ML FLUSH IV FLUSH SCH (08:34)
[2017-02-08] MEDS: BACITRACIN TOP OINT 15 GM TUBE TOPICAL SCH (08:35)
[2017-02-08] MEDS: LIDOCAINE HCL 5% PATCH T-DERMAL SCH (08:35)
[2017-02-08] MEDS ORDERED: REMOVE OLD PATCH T-DERMAL SCH (09:00)
[2017-02-08 12:00] VITALS: BP 115/58; PULSE 112; RESP 20; TEMP 98; O2SAT 98
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
[2017-02-08 16:00] VITALS: BP 113/78; PULSE 97; RESP 18; TEMP 96.1; O2SAT 99
[2017-02-08] MEDS ORDERED: SENN1TAB PO (18:05)
[2017-02-08] MEDS ORDERED: METH500T3 PO (18:05)
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
== END 2017-02-08 22:20 | disposition home or self-care (01) | DRG 958 ==
LOC: NEPI 23:42 → NEDA 01-29 00:29 → N03B 01-29 00:48 → N07B 01-29 11:19
PROVIDERS: ADMIT Surgery; ATTEND Surgery
PROC: 0KNT0ZZ Release Left Lower Leg Muscle, Open Approach (ICD-10-PCS; 2017-01-29)
PROC: 0KNT0ZZ Release Left Lower Leg Muscle, Open Approach (ICD-10-PCS; 2017-01-29)
PROC: 0KNT0ZZ Release Left Lower Leg Muscle, Open Approach (ICD-10-PCS; 2017-01-29)
PROC: 0KNT0ZZ Release Left Lower Leg Muscle, Open Approach (ICD-10-PCS; 2017-01-29)
PROC: 0HQLXZZ Repair Left Lower Leg Skin, External Approach (ICD-10-PCS; 2017-02-02)
PROC: 0QSH04Z Reposition Left Tibia with Internal Fixation Device, Open Approach (ICD-10-PCS; principal; 2017-02-02 11:54)
DX: S82.242A Displaced spiral fracture of shaft of left tibia, initial encounter for closed fracture (principal); S06.0X1A Concussion with loss of consciousness of 30 minutes or less, initial encounter; S27.321A Contusion of lung, unilateral, initial encounter; S36.039A Unspecified laceration of spleen, initial encounter; T79.A22A Traumatic compartment syndrome of left lower extremity, initial encounter; S01.01XA Laceration without foreign body of scalp, initial encounter; S20.219A Contusion of unspecified front wall of thorax, initial encounter; S82.142A Displaced bicondylar fracture of left tibia, initial encounter for closed fracture; V03.10XA Pedestrian on foot injured in collision with car, pick-up truck or van in traffic accident, initial encounter; Y92.488 Other paved roadways as the place of occurrence of the external cause; Y93.01 Activity, walking, marching and hiking; S82.832A Other fracture of upper and lower end of left fibula, initial encounter for closed fracture
CPT/HCPCS: 70450; 70486; 71010; 71260; 72125; 72128; 72131; 72170; 73552; 73560; 73590; 73610; 73630; 73700; 74177; 76000; 80048; 82435; 82565; 82947; 84132; 84295; 84520; 85014; 85018; 85025; 85610; 85730; 86850; 86900; 86901; 86920; 87641; 90715; 94150; 96374; C1713; C9113; J0131; J0690; J1170; J1580; J1650; J1885; J2175; J2250; J2270; J2370; J2405; J3010; J3370; J7050; J7120; L1830; Q9967